=== PATIENT | male | born 1935 | race Caucasian/White ===

== ENCOUNTER 2019-09-09 15:06 | Inpatient (IN) | payer OTHER, MEDICARE ==
[~2019-09-09] VITALS: Ht 190.5 cm; Wt 102.6 kg
[~2019-09-09 15:06] MED LIST: ACET325 PO; ALBIPROI INH; ALBU3IS INH; ALLO300 PO; AMMO140TC TOP; ARIXTRA SC; ASCO250CH PO; Acidophilus La100 GM PO; BUME1 PO; CALCAVITD PO; CALCAVITDA PO; CALCIUM 500 +1 EAC3 PO; CLOBET30L TOP; CYAN1000 PO; Clotrimazole AF30 GM TOP; DARB200I SUBQ; DIGO.125 PO; DOCU100 PO; FEBU40TA PO; FERR325 PO; FERROUS SULFATE PO; FLUC200 PO; FOLI1 PO; FURO40 PO; GERI HYDROLAC; Juven1 EACH PO; LEVO750 PO; LEVSOD100 PO; LEVSOD50 PO; LISI20 PO; LISI5 PO; LISINOPRIL PO; METO25ER PO; METO50 PO; MULVITMIND PO; MUPI2TC TOP; Multivitamin1 EAC1 PO; NYST100P TOP; NYSTRITC TOP; OXYC5 PO; PANT40 PO; POTCHL10ER PO; PYRI100 PO; Prinivil10 MG PO; Pyridium200 MG; Rocephin 1g1 G/50 ML IV; SENN187 PO; TAMS.4ER PO; THIA100 PO; TOBRAMYCIN IV; TRAM50 PO; TRIA80TC TOP; VITA25000 PO; WARF2.5 PO; ZOLP10 PO; vancomycin
[2019-09-09 16:33] LABS: Bun/Creatinine Ratio 20.3 (12.0-20.0); Calcium, Blood 8.5 mg/dL (8.5-10.1); Creatinine, Blood 1.48 mg/dL (0.60-1.20); Potassium, Blood 3.6 mmol/L (3.5-5.5)
--- NOTE | 2019-09-09 17:08 | NUR ---
Blood administration This RN clarified with Dr. Watson about 1 unit of PRBC to be tranfused only. Blood bank notified.
[2019-09-09 17:54] LABS: BASOPHILS ABSOLUTE AUTO 0.02 K/mm3 (0.00-0.23); BASOPHILS PERCENT AUTO 1 % (0-2); EOSINOPHILS ABSOLUTE AUTO 0.09 K/mm3 (0.00-0.68); EOSINOPHILS PERCENT AUTO 3 % (0-6); Hematocrit 21.9 % (37.0-53.0); Hemoglobin 6.8 g/dL (13.5-17.5); IMMATURE GRAN ABSOLUTE AUTO 0.02 K/mm3 (0.00-0.10); IMMATURE GRAN PERCENT AUTO 1 % (0-1); LYMPHOCYTES ABSOLUTE AUTO 0.77 K/mm3 (0.84-5.20); LYMPHOCYTES PERCENT AUTO 21 % (21-46); MONOCYTES ABSOLUTE AUTO 0.42 K/mm3 (0.16-1.47); MONOCYTES PERCENT AUTO 12 % (4-13); Mean Corpuscular HGB Conc 31.1 g/dL (31.5-36.5); Mean Corpuscular Volume 110 fL (80-100); NEUTROPHILS ABSOLUTE AUTO 2.29 K/mm3 (1.96-9.15); NEUTROPHILS PERCENT AUTO 63 % (41-73); Platelet Count 102 K/mm3 (150-400); RDW Coefficient Variation 15.2 % (11.7-14.2); RDW Standard Deviation 60.1 fL (35.1-46.3); White Blood Cell Count 3.61 K/mm3 (4.00-11.30)
[2019-09-09 18:00] LABS: Source, Urine Voided
[2019-09-09 18:10] LABS: Bilirubin, Urine Neg (Neg); Blood, Urine 1+ (Neg); Glucose Qualitative, Urine Neg (Neg); Ketones, Urine Neg (Neg); Leukocyte Esterase, Urine 2+ (Neg); Nitrite, Urine Neg (Neg); Protein, Urine Neg (Neg); Specific Gravity, Urine 1.005 (1.003-1.022); Urobilinogen, Urine NORM (Normal); pH, Urine 6.5 (5.0-8.0)
[2019-09-09] MEDS ORDERED: BUDE6HFA INH (18:10)
[2019-09-09] MEDS ORDERED: FEBU40TA PO (18:12)
[2019-09-09] MEDS ORDERED: HYDCHL25 PO (18:14)
[2019-09-09] MEDS ORDERED: Super B-50 Com1 EACH PO (18:15)
[2019-09-09] MEDS ORDERED: ALBU90OI INH (18:17)
[2019-09-09 18:29] LABS: Appearance, Urine Hazy (Clear); Color, Urine Yellow (P-Yellow)
[2019-09-09 18:31] LABS: Red Blood Cells, Urine 0-2 /hpf (0-2); Squamous Epithelial Cells Not Seen /hpf (Few)
[2019-09-09 18:32] LABS: Bacteria Rare /hpf
[2019-09-09 18:39] LABS: Mean Platelet Volume 13.8 fL (9.1-12.4)
--- NOTE | 2019-09-09 19:23 | NUR ---
Shift Summary Patient arrived to unit from ER @ 1700 via stretcher. Pt transferred self independently from stretcher to bed, oriented to room and call light system. Patient has been continent and indendently uses urinal at the bedside, gets dyspneic on exertion, RA. A/O to self, situation, and family. Bed in lowest position, call light near.
--- NOTE | 2019-09-09 21:26 | NUR ---
DR ZAYAS updated on need for wound care orders and blood bank will not be able to have 1 unit of blood here until 09/10/19 at 5 pm from [place] due to rare antibody. Wound care photos of buttock and sacral decub in chart. PT has ongoing wound care for lymphedema and has to keep le elevated. Has air pressure relieving bed at home. Recently his specalized WC got bedbugs and he had to dispose of it due to infestation. Wound care orders obtained.Discussed giving lovenox with low H & H, says to administer.
--- NOTE | 2019-09-10 03:38 | NUR ---
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 PT had been to wound clinic & [facility] and was admitted. Blood transfusion was ordered but not available until around 5 pm today from [facility] per blood bank. DR chand. Wound care to skin folds, sacral and buttock dcubs. Attempted to provide pressure relieving bed but none currently available. Bilat le were wrapped dressed by wound care clinic did not unwrap bilat le , they stay on for a week. PT recently had specialized WC pressure relieving become infected with bed bugs and he had to dispose of it. He sleeps in recliner due to chf and does not have properly fitting pressure relief for recliner. PT in isolation for MRSA esbl. PT had bilat le venous doppler studies at [facility] to rule out DVT. Both negative. PT is edentulous, changed diet order to mech soft to facilitate oral intake.
[2019-09-10 05:01] LABS: Hematocrit 19.9 % (37.0-53.0); Hemoglobin 6.3 g/dL (13.5-17.5); Mean Corpuscular HGB 34.4 pg (26.0-34.0); Mean Corpuscular HGB Conc 31.7 g/dL (31.5-36.5); Mean Corpuscular Volume 109 fL (80-100); Platelet Count 86 K/mm3 (150-400); RDW Coefficient Variation 15.1 % (11.7-14.2); RDW Standard Deviation 58.9 fL (35.1-46.3); Red Blood Cell Count 1.83 M/mm3 (4.30-5.90); White Blood Cell Count 2.72 K/mm3 (4.00-11.30)
[2019-09-10 05:32] LABS: Mean Platelet Volume 13.1 fL (9.1-12.4)
[2019-09-10 10:35] LABS: Percent Saturation 44.4 % (20.0-50.0)
[2019-09-10 13:14] LABS: Hematocrit 22.4 % (37.0-53.0); Hemoglobin 7.3 g/dL (13.5-17.5)
--- NOTE | 2019-09-10 15:13 | NUR ---
echocardiogram complete
--- NOTE | 2019-09-10 15:56 | NUR ---
Per Dr. Watson, infuse one PRBC and administer 20mg Lasix after infusion.
--- NOTE | 2019-09-10 18:23 | NUR ---
Shift Summary A/O to self, friends, and situation. Pt has been pleasant to have. Pt received 2 units PRBC, tolerated well both times. Occassional non-productive cough. Continues to have urgency and some incontinence due to this. Calls appropriately. Mepilex on coccyx changed today. Pt remains on room air and maintaining saturations, denies SOB. Tele remains in place. Medicated x1 for coccyx pain and repositioned for comfort as needed. C/O constipation, orders received. No other concerns.
[2019-09-11 04:46] LABS: Hematocrit 24.1 % (37.0-53.0); Hemoglobin 7.9 g/dL (13.5-17.5); Mean Corpuscular HGB 34.6 pg (26.0-34.0); Mean Corpuscular HGB Conc 32.8 g/dL (31.5-36.5); Platelet Count 96 K/mm3 (150-400); RDW Coefficient Variation 16.6 % (11.7-14.2); RDW Standard Deviation 64.2 fL (35.1-46.3); Red Blood Cell Count 2.28 M/mm3 (4.30-5.90); White Blood Cell Count 3.25 K/mm3 (4.00-11.30)
[2019-09-11 04:52] LABS: Mean Corpuscular Volume 106 fL (80-100); Mean Platelet Volume 13.4 fL (9.1-12.4)
[2019-09-11 05:10] LABS: Bun/Creatinine Ratio 20.7 (12.0-20.0); Calcium, Blood 8.6 mg/dL (8.5-10.1); Creatinine, Blood 1.4 mg/dL (0.60-1.20); Potassium, Blood 3.2 mmol/L (3.5-5.5)
--- NOTE | 2019-09-11 18:20 | NUR ---
SHIFT SUMMARY- PT A/O, PLESANT AND COOPERATIVE. PT IS RECIEVING IV DIURETICS AND IS VOIDING FREQUENTLY. PT IS EATING AND DRINKING WELL. PT HAD FRIENDS AT BEDSIDE FOR MOST OF THIS SHIFT. CONSULTATION CALLED TO DR. BERGER, OFFICE IS CLOSED UNTIL TOMORROW. PT HOPES TO BE DISCHARGED TOMORROW.
[2019-09-12 04:45] LABS: BASOPHILS ABSOLUTE AUTO 0.02 K/mm3 (0.00-0.23); BASOPHILS PERCENT AUTO 1 % (0-2); EOSINOPHILS ABSOLUTE AUTO 0.07 K/mm3 (0.00-0.68); EOSINOPHILS PERCENT AUTO 2 % (0-6); Hematocrit 24.2 % (37.0-53.0); Hemoglobin 7.9 g/dL (13.5-17.5); IMMATURE GRAN ABSOLUTE AUTO 0.03 K/mm3 (0.00-0.10); IMMATURE GRAN PERCENT AUTO 1 % (0-1); LYMPHOCYTES ABSOLUTE AUTO 0.49 K/mm3 (0.84-5.20); LYMPHOCYTES PERCENT AUTO 13 % (21-46); MONOCYTES ABSOLUTE AUTO 0.57 K/mm3 (0.16-1.47); MONOCYTES PERCENT AUTO 16 % (4-13); Mean Corpuscular HGB 34.5 pg (26.0-34.0); Mean Corpuscular HGB Conc 32.6 g/dL (31.5-36.5); Mean Corpuscular Volume 106 fL (80-100); Mean Platelet Volume 12.8 fL (9.1-12.4); NEUTROPHILS PERCENT AUTO 68 % (41-73); Platelet Count 94 K/mm3 (150-400); RDW Standard Deviation 62.4 fL (35.1-46.3); Red Blood Cell Count 2.29 M/mm3 (4.30-5.90); White Blood Cell Count 3.68 K/mm3 (4.00-11.30)
[2019-09-12 04:58] LABS: Bun/Creatinine Ratio 18.9 (12.0-20.0); Calcium, Blood 8.6 mg/dL (8.5-10.1); Creatinine, Blood 1.32 mg/dL (0.60-1.20); Magnesium, Blood 1.2 mg/dL (1.6-2.4); Potassium, Blood 3.4 mmol/L (3.5-5.5)
--- NOTE | 2019-09-12 06:46 | NUR ---
SHIFT SUMMARY PT IS AN 84 Y/O MALE, ADMITTED FOR ANEMIA. HE IS A&O X 3, AND A 1PA UP IN THE ROOM. THE PT BEGAN REPORTING AN INCREASE IN COUGH AND SOB DURING THE NIGHT THAT WAS NOT RELIEVED WITH A BREATHING TREATMENT. PT'S COUGH WAS PRODUCTIVE WITH A PIÑA, THICK SPUTUM AT THE START OF SHIFT. PT BEGAN COUGHING UP LARGE AMOUNTS OF SPUTUM AND SALIVA THAT WAS TINTED ORANGE, THOUGH WITH THE LARGE AMOUNT OF SALIVA IT WAS DIFFICULT TO TELL THE COLOR OF THE SPUTUM ALONE. WHEN THE COUGHING DID NOT RESOLVE ON ITS OWN, THE HOSPITALIST K[facility] HOOD WAS CONSULTED, AND PO GUIAFENESIN/CODEINE WAS ORDERED. ONE DOSE DID HELP RELIEVE MOST OF THE PT'S COUGHING. THE PT REPORTED ABD PAIN R/T THE COUGHING, WELL AN EPISODE OF EMESIS. HE WAS MEDICATED WITH PO TYLENOL AND IV ZOFRAN. DURING AM VITALS, PT'S O2 SATS WERE FOUND TO BE IN THE 70-80S. HE WAS PLACED ON 2.5L OF O2, WHICH BROUGHT HIM BACK UP TO 91-94%. PT DENIED SOB AT THAT TIME. AFTER CONSULTING WITH RT, THE HOSPITALIST DR PRICE WAS CONSULTED, AND A CHEST XR ORDERED FOR THIS AM. ALL OTHER VITALS REMAINED STABLE. TELE SHOWED AFIB C BBB & PVCS IN THE 80S. NO OTHER ACUTE CHANGES IN PT CONDITION NOTED. WILL CONTINUE TO MONITOR AND TREAT PER EMAR UNTIL HAND OFF TO DAY SHIFT RN.
--- NOTE | 2019-09-12 17:42 | NUR ---
SHIFT SUMMARY PT USING URINAL AND VOIDING SMALL AMOUNTS AT A TIME. DID A BLADDER SCAN BUT NO RETENTION NOTED. 1 PERSON ASSIST UP TO SIDE OF BET AND STANDING. HOPES TO GO HOME TOMORROW. DID REDUCE O2 TO 1LM WITH SATS MAINTAINED APPROX 90-91% DENIES RESP DISTRESS BUT DOES APPEAR TO GET SOB WITH ACTIVITY. OCC COUGH NOTED. R.T. REPORTS PT COUGHED UP GREEN SPUTUM WITH TX. IS GIVEN AND INSTRUCTED BY R.T. WELL AND THEN ENCOURAGED TO BE USED. STATES HE FEELS MUCH BETTER THAN HE DID LAST NIGHT.
--- NOTE | 2019-09-13 04:14 | NUR ---
SHIFT SUMMARY PATIENT ALERT AND ORIENTED. ABLE TO SLEEP MOST OF THE NIGHT. EVERY TIME HE TRIES TO URINATE IN HIS URINAL, HE TENDS TO COUGH. PATIENT HAS HAD NO COMPLAINTS OF PAIN. IV PATENT AND FLUSHED. BED IN LOWEST POSITION WITH WHEELS LOCKED AND ALARM ON. CALL LIGHT AND BELONGINGS WITHIN REACH. REPORT GIVEN TO ONCANA PAULA LAYTON.
[2019-09-13 10:31] LABS: BASOPHILS ABSOLUTE AUTO 0.03 K/mm3 (0.00-0.23); BASOPHILS PERCENT AUTO 1 % (0-2); EOSINOPHILS ABSOLUTE AUTO 0.08 K/mm3 (0.00-0.68); EOSINOPHILS PERCENT AUTO 1 % (0-6); Hematocrit 26.3 % (37.0-53.0); Hemoglobin 8.3 g/dL (13.5-17.5); IMMATURE GRAN ABSOLUTE AUTO 0.08 K/mm3 (0.00-0.10); IMMATURE GRAN PERCENT AUTO 1 % (0-1); LYMPHOCYTES PERCENT AUTO 8 % (21-46); MONOCYTES ABSOLUTE AUTO 0.76 K/mm3 (0.16-1.47); MONOCYTES PERCENT AUTO 12 % (4-13); Mean Corpuscular HGB Conc 31.6 g/dL (31.5-36.5); Mean Corpuscular Volume 108 fL (80-100); NEUTROPHILS ABSOLUTE AUTO 4.82 K/mm3 (1.96-9.15); NEUTROPHILS PERCENT AUTO 77 % (41-73); Platelet Count 93 K/mm3 (150-400); RDW Coefficient Variation 15.4 % (11.7-14.2); RDW Standard Deviation 60.8 fL (35.1-46.3); Red Blood Cell Count 2.44 M/mm3 (4.30-5.90); White Blood Cell Count 6.27 K/mm3 (4.00-11.30)
[2019-09-13 10:35] LABS: Mean Platelet Volume 13.5 fL (9.1-12.4)
[2019-09-13 10:44] LABS: Magnesium, Blood 1.6 mg/dL (1.6-2.4); Uric Acid, Blood 8.2 mg/dL (3.5-7.2)
--- NOTE | 2019-09-13 13:47 | NUR ---
PER T/O FROM DR. PALACIOS, START LEVAQUIN, COLCHICINE, MAGNESIUM, AND PREDNISONE NOW.
--- NOTE | 2019-09-13 19:15 | NUR ---
SHIFT SUMMARY. THIS AM PT REPORTED PAIN AND STIFFNES TO L KNEE AND L ANKLE, DR. PALACIOS AWARE, PT RESTARTED ON ULORIC, STARTED ON PREDNISONE AND COLCHICINE, BY THE END OF THE SHIFT ROM AND PAIN TO KNEE AND ELBOW HAVE IMPROVED. 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 FAMILY IN TO VISIT THIS AFTERNOON. NO N/V, MILD SOB WITH EXERTION, PT CONTINUES WIHT 2L O2 NC.
--- NOTE | 2019-09-14 04:35 | NUR ---
SHIFT SUMMARY PATIENT ABLE TO SLEEP MOST OF THE NIGHT. DRESSING CHANGED TO COCCYX AND RIGHT ELBOW USING MEPILEX BANDAGES. PATIENT CURRENTLY ON 2 LITERS O2 VIA NASAL CANULA. IV PATENT AND FLUSHED. BED IN LOWEST POSITION WITH WHEELS LOCKED AND ALARM ON. CALL LIGHT AND BELONGINGS WITHIN REACH. REPORT GIVEN TO ONCOMING RN.
[2019-09-14 05:27] LABS: BASOPHILS ABSOLUTE AUTO 0.01 K/mm3 (0.00-0.23); BASOPHILS PERCENT AUTO 0 % (0-2); EOSINOPHILS PERCENT AUTO 0 % (0-6); Hematocrit 23.4 % (37.0-53.0); Hemoglobin 7.6 g/dL (13.5-17.5); IMMATURE GRAN ABSOLUTE AUTO 0.05 K/mm3 (0.00-0.10); IMMATURE GRAN PERCENT AUTO 1 % (0-1); LYMPHOCYTES ABSOLUTE AUTO 0.31 K/mm3 (0.84-5.20); LYMPHOCYTES PERCENT AUTO 6 % (21-46); MONOCYTES ABSOLUTE AUTO 0.38 K/mm3 (0.16-1.47); MONOCYTES PERCENT AUTO 7 % (4-13); Mean Corpuscular HGB Conc 32.5 g/dL (31.5-36.5); Mean Corpuscular Volume 108 fL (80-100); NEUTROPHILS ABSOLUTE AUTO 4.76 K/mm3 (1.96-9.15); NEUTROPHILS PERCENT AUTO 86 % (41-73); Platelet Count 76 K/mm3 (150-400); RDW Coefficient Variation 14.9 % (11.7-14.2); RDW Standard Deviation 58.4 fL (35.1-46.3); Red Blood Cell Count 2.17 M/mm3 (4.30-5.90); White Blood Cell Count 5.51 K/mm3 (4.00-11.30)
[2019-09-14 05:36] LABS: Mean Platelet Volume 13.8 fL (9.1-12.4)
[2019-09-14 05:53] LABS: Bun/Creatinine Ratio 26.5 (12.0-20.0); Calcium, Blood 8.8 mg/dL (8.5-10.1); Creatinine, Blood 1.32 mg/dL (0.60-1.20); Potassium, Blood 4.4 mmol/L (3.5-5.5)
[2019-09-14] MEDS ORDERED: LEVFLO500 PO (11:46)
[2019-09-14] MEDS ORDERED: PRED20 PO (11:47)
--- NOTE | 2019-09-14 18:35 | NUR ---
SHIFT SUMMARY. RT CALLED [facility] [employer] THIS AFTERNOON APROX 14OO, THEY REPORTED THAT THEY WERE STILL PROCESSING THE ORDERS AND THAT SOMEONE WOULD BE DELIVERING O2 IN THE NEX 1-2 HOURS. APPOX 1700 NO O2 DELIVERED, D/C PROCESS OTHERWISE COMPLETE. RT CONTACTED [facility] AND THEY REPORTED THAT THEY WERE NOT DELIVERING HOME O2 TILL TOMORROW. RT SPOKE WITH NURSING CABLE OPERATOR, HE REPORTED THAT PT COULD TAKE HOSPITAL TANK HOME ALTHOUGH WOULD ONLY LAST 6-8 HOURS. SPOKE WITH PT AND FAMILY OF RISKS AND BENIFITS OF LEAVING TONIGHT AND STAYING TILL MORNING, THEY AGREE THAT IT WOULD BE BETTER TO STAY THE NIGHT. PLAN IS FOR PT TO D/C AT 0500 TOMORROW MORNING.
--- NOTE | 2019-09-15 03:35 | NUR ---
PHYSICIAN COMMUNICATION I SPOKE WITH DR MCCLENDON TO ASK HER IF THE PATIENT'S ACTIVE TELEMETRY AND PERIPHERAL IV ORDERS COULD BE DISCONTINUED. I EXPLAINED THAT HE HAD BEEN DISCONECTED FROM THEM BOTH DUE TO HAVING DISCHARGE ORDERS AND A PLANNED DISCHARGE THIS MORNING. SHE SAID BOTH ORDERS COULD BE DC'D
--- NOTE | 2019-09-15 05:46 | NUR ---
SHIFT SUMMARY PATIENT ALERT AND ORIENTED OVERNIGHT. WAS LOOKING FORWARD TO GOING HOME IN THE MORNING. SLEPT WELL. PATIENT DISCHARGED TO HOME IN THE CARE OF HIS DAUGHTER WITH AN OXYGEN TANK TO TIDE HIM OVER UNTIL HE IS ABLE TO [facility]. DAUGHTER EXPECTED TO RETURN THE TANK BY 1400 AND WILL CALL IF UNABLE TO. BOTH PATIENT AND DAUGHTER EDUCATED ON THE USE OF THE OXYGEN TANK.
--- NOTE | 2019-09-15 12:53 | NUR ---
advance directive recieved from [place] sent to medical records
== END 2019-09-15 05:44 | disposition home or self-care (01) | DRG 291 ==
LOC: ER 15:06 → MEDS 16:09
PROVIDERS: Internal Medicine; ADMIT Internal Medicine
PROC: 30233N1 Transfusion of Nonautologous Red Blood Cells into Peripheral Vein, Percutaneous Approach (ICD-10-PCS; principal; 2019-09-09)
DX: I50.33 Acute on chronic diastolic (congestive) heart failure (principal); J96.01 Acute respiratory failure with hypoxia; J18.9 Pneumonia, unspecified organism; I48.20 Chronic atrial fibrillation, unspecified; J44.1 Chronic obstructive pulmonary disease with (acute) exacerbation; J44.0 Chronic obstructive pulmonary disease with (acute) lower respiratory infection; E03.9 Hypothyroidism, unspecified; M10.9 Gout, unspecified; N40.0 Benign prostatic hyperplasia without lower urinary tract symptoms; K21.9 Gastro-esophageal reflux disease without esophagitis; I73.9 Peripheral vascular disease, unspecified; E66.9 Obesity, unspecified; Z87.891 Personal history of nicotine dependence; D63.8 Anemia in other chronic diseases classified elsewhere; N18.3 Chronic kidney disease, stage 3 (moderate); R82.81 Pyuria; Y95 Nosocomial condition; Z68.29 Body mass index [BMI] 29.0-29.9, adult
CPT/HCPCS: 36415; 36430; 71045; 76770; 80048; 81001; 82607; 82728; 82746; 83540; 83550; 83735; 83880; 84550; 85014; 85018; 85025; 85027; 86850; 86900; 86901; 86902; 86920; 86922; 87086; 93005; 93010; 93306; 94640; 94760; 97116; 97162; 97530; 99285-25; J0696; J1650; J1940; J2405; J3475; J7050; J7512; P9016